=== PATIENT | female | born 1975 | race Caucasian/White ===

== ENCOUNTER 2019-12-10 13:02 | Outpatient (RCR) | payer OTHER, SELFPAY ==
[2019-12-10 13:07] VITALS: BMI 41.0
== END 2020-03-09 23:59 | disposition home or self-care (01) ==
LOC: ANHDMC 13:02
PROVIDERS: PCP Internal Medicine Infectious Disease; Visit Provider Internal Medicine Infectious Disease
DX: E66.9 Obesity, unspecified (principal); Z71.3 Dietary counseling and surveillance
CPT/HCPCS: 97802